=== PATIENT | female | born 1970 | race American Indian/Alaskan Native ===

== ENCOUNTER 2018-07-25 20:53 | Emergency (ER) | payer SELFPAY | END 2018-07-25 20:57 | disposition left against medical advice (07) | LOC: ED 20:53 | DX: M54.9 Dorsalgia, unspecified (principal); Z53.21 Procedure and treatment not carried out due to patient leaving prior to being seen by health care provider ==

== ENCOUNTER 2020-08-25 10:16 | Outpatient (CLI) | payer OTHER ==
[2020-08-25 11:09] LABS: Alanine Aminotransferase 23 units/L (7-56); Albumin 4.3 g/dL (3.9-5); Blood Urea Nitrogen 17 mg/dL (7-17); Calcium 9.6 mg/dL (8.4-10.2); Hemolysis Index 155
[2020-08-25 11:11] LABS: BUN/Creatinine Ratio 24
== END 2020-08-25 10:17 | disposition home or self-care (01) ==
LOC: LAB 10:16
PROVIDERS: ATTEND Internal Medicine
DX: G47.33 Obstructive sleep apnea (adult) (pediatric) (principal); R20.0 Anesthesia of skin; M79.605 Pain in left leg; M79.604 Pain in right leg
CPT/HCPCS: 36415; 80053

== ENCOUNTER 2020-10-08 10:20 | Outpatient (CLI) | payer OTHER ==
[2020-10-08 11:13] LABS: Alanine Aminotransferase 30 units/L (7-56); Albumin 4.4 g/dL (3.9-5); Blood Urea Nitrogen 13 mg/dL (7-17); Calcium 10.2 mg/dL (8.4-10.2); Hemolysis Index 16
[2020-10-08 11:19] LABS: BUN/Creatinine Ratio 22
== END 2020-10-08 10:21 | disposition home or self-care (01) ==
LOC: LAB 10:20
PROVIDERS: ATTEND Internal Medicine
DX: Z02.71 Encounter for disability determination (principal); E06.9 Thyroiditis, unspecified
CPT/HCPCS: 36415; 80053; 84443